=== PATIENT | female | born 1940 | race Caucasian/White ===

== ENCOUNTER 2022-05-08 18:22 | Outpatient (RCR) | payer BC, SELFPAY | END 2022-12-06 09:42 | disposition home or self-care (01) | LOC: MOW 18:22 | PROVIDERS: PCP Family Medicine; Visit Provider Family Medicine | DX: Z76.0 Encounter for issue of repeat prescription (principal) | CPT/HCPCS: S5170 ==

== ENCOUNTER 2022-12-07 10:38 | Outpatient (CLI) | payer MEDICARE, BC, SELFPAY ==
[2022-12-07 11:34] LABS: Chloride* 107 mmol/L (96-114); Potassium* 3.6 mmol/L (3.6-5.1); Sodium* 140 mmol/L (135-149)
[2022-12-07 11:36] LABS: Cholesterol* 147 mg/dL (90-199)
[2022-12-07 11:37] LABS: Alanine Aminotransferase* 24 U/L (4-35); Blood Urea Nitrogen* 16 mg/dL (7-30); Carbon Dioxide* 24 mmol/L (20-32); Creatinine* 0.9 mg/dL (0.5-1.5); Estimated Glomerular Filt Rate 64 ml/min; Glucose* 125 mg/dL (60-115); Triglycerides* 105 mg/dL (40-149)
[2022-12-07 11:38] LABS: HDL Cholesterol* 57 mg/dL (>=50); LDL Cholesterol Calculated 68 mg/dL (<100)
== END 2022-12-07 10:39 | disposition home or self-care (01) ==
LOC: NFLDREF 10:41
PROVIDERS: PCP Family Medicine; Visit Provider Family Medicine
DX: E11.9 Type 2 diabetes mellitus without complications (principal); E78.5 Hyperlipidemia, unspecified; I10 Essential (primary) hypertension
CPT/HCPCS: 80048; 80061; 84460

== ENCOUNTER 2023-05-01 11:53 | Outpatient (CLI) | payer MEDICARE, BC, SELFPAY | END 2023-05-01 11:54 | disposition home or self-care (01) | LOC: AMB 05-02 12:48 | PROVIDERS: PCP Family Medicine; Visit Provider Emergency Medicine | DX: R53.1 Weakness (principal) | CPT/HCPCS: A0425; A0429 ==

== ENCOUNTER 2023-05-01 12:12 | Emergency (ER) | payer MEDICARE, BC, SELFPAY ==
[2023-05-01 12:17] VITALS: BP 144/89; PULSE 90; RESP 18; TEMP 36.4; O2SAT 96; BMI 17.8
--- NOTE | 2023-05-01 12:36 | ED.GENADULT ---
HPI - General Adult General Chief complaint: Back Injury/Pain Stated complaint: Wellness check Time Seen by Provider: 05/01/23 12:26 History of Present Illness HPI narrative: This 82-year-old female is getting her things ready at home in order to move into an assisted living situation about 5 days from now. She comes in for a checkup because of feeling weak. She states that she has chronic back pain. She does not report any other new symptoms. She states that she is doing okay for now at her place of living but it will be good to be in a different place with more assistance. She states that she does not like to eat alone and this place she is going to will have others around and meals prepared for her. She does report some nausea and occasional vomiting. She does not report any injury event her other pain besides her chronic back pain. She arrives with normal vital signs. Related Data Home Medications Medication Instructions Recorded Confirmed metoprolol succinate 25 mg 25 mg PO QDAY 09/06/22 05/01/23 tablet,extended release 24 hr simvastatin 40 mg tablet 40 mg PO QDAY 09/06/22 05/01/23 aspirin 81 mg tablet,delayed 81 mg PO QDAY 09/07/22 05/01/23 release multivitamin (Daily Multi-Vitamin 1 tab PO QDAY 09/07/22 05/01/23 tablet) calcium carbonate 500 mg calcium 500 mg PO BID 02/07/23 05/01/23 (1,250 mg) tablet ergocalciferol (vitamin D2) 10 mcg 20 mcg PO BID 02/07/23 05/01/23 (400 unit) tablet naloxone 0.4 mg/mL injection 0.4 mg IM PRN 02/07/23 02/07/23 solution Previous Rx's Medication Instructions Recorded metformin 500 mg tablet,extended 500 mg PO BID #60 tabs 09/07/22 release 24hr estradiol 0.01% (0.1 mg/gram) 1 g vaginal 2XW #42.5 grams 12/07/22 vaginal cream (Estrace) lisinopril 10 mg tablet 10 mg PO QDAY #90 tabs 12/07/22 nitroglycerin 0.4 mg sublingual 0.4 mg sublingual Q5M PRN chest 12/07/22 tablet pain #20 tabs omeprazole 40 mg capsule,delayed 40 mg PO QDAY #90 caps 12/07/22 release amitriptyline 10 mg tablet 10 mg PO QHS #90 tabs 02/08/23 lancing device #1 ea 02/26/23 morphine 30 mg tablet,extended 30 mg PO BID #60 tabs 04/16/23 release Allergies Allergy/AdvReac Type Severity Reaction Status Date / Time penicillin V Allergy Intermediate Unconscious Verified 02/27/23 14:04 Sulfa (Sulfonamide Allergy Intermediate Rash Verified 02/27/23 14:04 Antibiotics) Review of Systems Status of ROS: Reports: 10 or more systems reviewed and unremarkable except as noted in History and below Narrative: Constitutional: No fevers, no weight gain or loss. Eyes: No discharge. No vision changes. HENT: No congestion, no sore throat, no ear pain. Cardiovascular: No chest pain, no palpitations. Respiratory: No shortness of breath, no wheezes, no cough. Gastrointestinal: No abdominal pain, no vomiting, no diarrhea. Genitourinary: No dysuria, no hematuria. Musculoskeletal: Normal range of motion. Skin: No rashes, no pruritis. Neurological: No dizziness, sensory change, speech change. Generalized weakness and fatigue. Endo/Heme/Allergies: No bruising or bleeding. No polydipsia. Pysch: no suicidality, no anxiety, no insomnia. All other systems reviewed and are negative. [facility] Medical History (Updated 05/01/23 @ 13:54 by Reymundo Ott MD) GERD (gastroesophageal reflux disease) ?K21.9 - Gastro-esophageal reflux disease without esophagitis (ICD-10) Chronic eczema ?L30.9 - Dermatitis, unspecified (ICD-10) History of peptic ulcer (2001) ?Z87.11 - Personal history of peptic ulcer disease (ICD-10) ASCVD (arteriosclerotic cardiovascular disease) ?I25.10 - Atherosclerotic heart disease of [place] coronary artery without angina pectoris (ICD-10) History of myocardial infarction (03/28/10) ?I25.2 - Old myocardial infarction (ICD-10) Atrophic vaginitis ?N95.2 - Postmenopausal atrophic vaginitis (ICD-10) Fibromyalgia ?M79.7 - Fibromyalgia (ICD-10) Generalized anxiety disorder ?F41.1 - Generalized anxiety disorder (ICD-10) Osteopenia ?M85.80 - Other specified disorders of bone density and structure, unspecified site (ICD-10) History of deep venous thrombosis (DVT) of distal vein of right lower extremity ?Z86.718 - Personal history of other venous thrombosis and embolism (ICD-10) Major depression ?F32.9 - Major depressive disorder, single episode, unspecified (ICD-10) Hyperlipidemia ?E78.5 - Hyperlipidemia, unspecified (ICD-10) Hypertension ?I10 - Essential (primary) hypertension (ICD-10) Chronic low back pain ?M54.50 - Low back pain, unspecified (ICD-10) ?G89.29 - Other chronic pain (ICD-10) Type 2 diabetes mellitus ?E11.9 - Type 2 diabetes mellitus without complications (ICD-10) Surgical History (Updated 09/13/22 @ 12:37 by Rosie Elise) History of phacoemulsification of cataract of both eyes with intraocular lens implantation (2002) ?Z98.41 - Cataract extraction status, right eye (ICD-10) ?Z98.42 - Cataract extraction status, left eye (ICD-10) ?Z96.1 - Presence of intraocular lens (ICD-10) Hx of decompressive lumbar laminectomy ?Z98.890 - Other specified postprocedural states (ICD-10) Hx of cholecystectomy ?Z90.49 - Acquired absence of other specified parts of digestive tract (ICD-10) S/P [place]-BSO ?Z90.710 - Acquired absence of both cervix and uterus (ICD-10) ?Z90.722 - Acquired absence of ovaries, bilateral (ICD-10) ?Z90.79 - Acquired absence of other genital organ(s) (ICD-10) Hx of appendectomy ?Z90.49 - Acquired absence of other specified parts of digestive tract (ICD-10) Family History (Updated 09/13/22 @ 13:08 by Rosie Elise) Father Heart disease High blood pressure Mother Liver cancer Migraines Uncle Coronary artery disease Diabetes Paternal Grandmother Diabetes Family/Other Diabetes Social History (Updated 09/10/22 @ 03:21 by Easton Brooks MD) Narrative: , no kids, retired, nonsmoker, no EtOH Smoking Status: Former smoker Do you use any of these nicotine containing products: None Second hand tobacco smoke exposure: No How often do you have a drink containing alcohol: never AUDIT-C Alcohol total score: 0 Non-prescribed substance use: denies use Little interest or pleasure in doing things: not at all Feeling down, depressed, or hopeless: not at all Exam Narrative: Exam Narrative: Constitutional: No acute distress. She weighs 41 kg. HEENT: Normocephalic, atraumatic. Neck: Normal range of motion. Nontender. Supple. Heart: Regular. No murmurs. Normal rate. Intact distal pulses. Lungs: Clear to auscultation. No chest discomfort. No wheezes, rhonchi, or rales. Abdomen: Normal bowel sounds. Nontender. No rebound tenderness. Genitalia: Deferred. Back: No midline tenderness. Normal range of motion. Extremities: Normal range of motion. No injury. No pedal edema. Skin: Intact. No rash. Warm. No erythema or pallor. Neurologic: No altered sensation. No weakness. Alert and oriented. Psychiatric: No suicidality. No anxiety or depression. No insomnia. Nursing notes and vitals signs are reviewed. Const: Vital Signs, click to edit/add: Vital Signs - 24 hr 05/01/23 12:17 Temperature 97.6 F Pulse Rate [Pulse Oximeter] 90 Respiratory Rate 18 Blood Pressure [Ri ght Upper Arm] 144/89 H Pulse Oximetry 96 Oxygen Delivery Me thod Room Air Course Vital Signs Vital signs: Initial Vital Signs Temperature 97.6 F 05/01/23 12:17 Temperature Source Temporal Artery Scan 05/01/23 12:17 Pulse Rate 90 05/01/23 12:17 Respiratory Rate 18 05/01/23 12:17 Blood Pressure 144/89 H 05/01/23 12:17 Blood Pressure Mean 107 H 05/01/23 12:17 Blood Pressure Position High-Fowlers 05/01/23 12:17 Pulse Oximetry 96 05/01/23 12:17 Oxygen Delivery Method Room Air 05/01/23 12:17 Vital Signs Temperature 97.6 F 05/01/23 12:17 Pulse Rate 90 05/01/23 12:17 Respiratory Rate 18 05/01/23 12:17 Blood Pressure 144/89 H 05/01/23 12:17 Pulse Oximetry 96 05/01/23 12:17 Oxygen Delivery Method Room Air 05/01/23 12:17 Temperature 97.6 F 05/01/23 12:17 Pulse Rate 90 05/01/23 12:17 Respiratory Rate 18 05/01/23 12:17 Blood Pressure 144/89 H 05/01/23 12:17 Pulse Oximetry 96 05/01/23 12:17 Oxygen Delivery Method Room Air 05/01/23 12:17 Medical Decision Making MDM Narrative Medical decision making narrative: This patient comes in reporting some generalized weakness. She has chronic low back pain. She is able to get up and ambulate. She is planning to move to a new facility where there is assistance for her living activities. An IV was established today and she received 500 mL of D5 half-normal saline. Lab results returned with reassuring findings. Her glucose is slightly elevated and her white count returns at 14,000. She has normal vital signs. She is okay to return home to continue current plans. Lab Data Labs: Lab Results 05/01/23 Range/Units 12:50 WBC 14.05 H (4.50-11.00) K/uL RBC 4.40 (4.00-5.20) m/uL Hgb 13.1 (12.0-16.0) gm/dL Hct 40.0 (33.0-51.0) % MCV 91 (80-100) fL MCH 30 (26-34) pg MCHC 33 (32-36) gm/dL RDW Coeff of Nikki 13.9 (11.5-15.5) % Plt Count 219 (140-440) K/uL Neut % (Auto) 92.2 H (42.0-72.0) % Lymph % (Auto) 4.0 L (20-44) % Dickey % (Auto) 3.6 (0.0-11.0) % Eos % (Auto) 0.0 (0.0-7.0) % Baso % (Auto) 0.1 (0.0-3.0) % Neut # (Auto) 13.00 H (1.7-7.0) K/uL Lymph # (Auto) 0.60 L (0.90-2.90) K/uL [place]key # (Auto) 0.50 (0.00-0.90) K/UL Eos # (Auto) 0.00 (0.00-0.50) K/uL Baso # (Auto) 0.00 (0.00-0.30) K/uL Sodium 141 (135-149) mmol/L Potassium 3.6 (3.6-5.1) mmol/L Chloride 101 (96-114) mmol/L Carbon Dioxide 29 (20-32) mmol/L BUN 19 (7-30) mg/dL Creatinine 0.7 (0.5-1.5) mg/dL Estimated Creat Clear 28.26 Estimated GFR 86 ml/min Glucose 169 H (60-115) mg/dL Calcium 10.1 (8.4-10.6) mg/dL Discharge Plan Discharge Clinical Impression: Weakness, Chronic back pain Patient Disposition: Home, Self-Care Condition: Stable Additional Instructions: Continue current plans. Follow up with MD or return if worsening symptoms occur. Prescriptions: No Action metoprolol succinate 25 mg tablet extended release 24 hr 25 mg PO QDAY simvastatin 40 mg tablet 40 mg PO QDAY aspirin 81 mg tablet,delayed release (DR/EC) 81 mg PO QDAY multivitamin [Daily Multi-Vitamin] Tablet 1 tab PO QDAY metformin 500 mg tablet extended release 24hr 500 mg PO BID Qty: 60 5RF lisinopril 10 mg tablet 10 mg PO QDAY Qty: 90 3RF omeprazole 40 mg capsule,delayed release(DR/EC) 40 mg PO QDAY Qty: 90 3RF nitroglycerin 0.4 mg tablet, sublingual 0.4 mg sublingual Q5M PRN (Reason: chest pain) Qty: 20 5RF estradiol [Estrace] 0.01 % (0.1 mg/gram) cream 1 g vaginal 2XW Qty: 42.5 5RF calcium carbonate 500 mg calcium (1,250 mg) tablet 500 mg PO BID ergocalciferol (vitamin D2) 10 mcg (400 unit) tablet 20 mcg PO BID naloxone 0.4 mg/mL solution 0.4 mg IM PRN amitriptyline 10 mg tablet 10 mg PO QHS Qty: 90 1RF (DME) lancing device Misc See Rx Instructions .Route Qty: 1 0RF Rx Instructions: As directed morphine 30 mg tablet extended release 30 mg PO BID Qty: 60 0RF Follow Up/Referrals: Easton Brooks MD [Primary Care Provider] - Stand Alone [facility]: [facility] Info Inst[facility]
[2023-05-01] MEDS: 5 % DEXTROSE/0.45% SOD CHLOR 1,000 ML 500 ML IV (12:51)
[2023-05-01 13:01] LABS: Basophils Percent Auto 0.1 % (0.0-3.0); Hemoglobin* 13.1 gm/dL (12.0-16.0); Immature Granulocytes Pct Auto 0.1 %; Mean Corpuscular HGB Conc 33 gm/dL (32-36); Mean Corpuscular Hemoglobin 30 pg (26-34); Mean Corpuscular Volume 91 fL (80-100); Monocytes Percent Auto 3.6 % (0.0-11.0); Neutrophils Percent Auto 92.2 % (42.0-72.0); Platelet Count* 219 K/uL (140-440); RDW Coefficient of Variation % 13.9 % (11.5-15.5); White Blood Count* 14.05 K/uL (4.50-11.00)
[2023-05-01 13:13] LABS: Chloride* 101 mmol/L (96-114); Potassium* 3.6 mmol/L (3.6-5.1); Sodium* 141 mmol/L (135-149)
[2023-05-01 13:16] LABS: Blood Urea Nitrogen* 19 mg/dL (7-30); Calcium* 10.1 mg/dL (8.4-10.6); Carbon Dioxide* 29 mmol/L (20-32); Creatinine* 0.7 mg/dL (0.5-1.5); Est. Creatinine Clearance* 28.26; Estimated Glomerular Filt Rate 86 ml/min; Glucose* 169 mg/dL (60-115)
--- NOTE | 2023-05-01 13:25 | ED.NURSE ---
Pt has stated feelings of anxiety while being here, due to her moving places of living and being here in the hospital. She has also said she has had a lack of sleep since moving, and was nodding off while i assessed her.
[2023-05-01 13:45] LABS: Slide Review Reflex No
[2023-05-01 14:06] VITALS: BP 143/85; PULSE 102; RESP 15; TEMP 36; O2SAT 99
--- NOTE | 2023-05-01 14:16 | ED.NURSE ---
Kenneth thomas called get an update on pt. appears per note that pt will be planned for d/c. Guardian had no further questions.
== END 2023-05-01 15:02 | disposition home or self-care (01) ==
PROVIDERS: Emergency Provider Emergency Medicine Emergency Medical Services; PCP Family Medicine
DX: M54.50 Low back pain, unspecified (principal); R53.1 Weakness
CPT/HCPCS: 36415; 80048; 85025; 99283; 99284; S5010

== ENCOUNTER 2023-05-31 10:29 | Outpatient (CLI) | payer MEDICARE, BC, SELFPAY | END 2023-05-31 10:30 | disposition home or self-care (01) | LOC: NFLDREF 10:31 | PROVIDERS: PCP Family Medicine; Visit Provider Family Medicine | DX: E78.5 Hyperlipidemia, unspecified (principal); I10 Essential (primary) hypertension; E11.9 Type 2 diabetes mellitus without complications | CPT/HCPCS: 80048; 80076 ==

== ENCOUNTER 2023-06-23 20:52 | Outpatient (CLI) | payer MEDICARE, BC, SELFPAY | END 2023-06-23 20:53 | disposition home or self-care (01) | LOC: AMB 06-25 12:53 | PROVIDERS: PCP Family Medicine; Visit Provider Family Medicine | DX: M53.3 Sacrococcygeal disorders, not elsewhere classified (principal) | CPT/HCPCS: A0998 ==

== ENCOUNTER 2023-06-24 13:47 | Outpatient (CLI) | payer MEDICARE, BC, SELFPAY | END 2023-06-24 13:48 | disposition home or self-care (01) | LOC: AMB 06-26 13:43 | PROVIDERS: PCP Family Medicine; Visit Provider Emergency Medicine Emergency Medical Services | DX: S49.91XA Unspecified injury of right shoulder and upper arm, initial encounter (principal); S49.92XA Unspecified injury of left shoulder and upper arm, initial encounter; W18.30XA Fall on same level, unspecified, initial encounter; Y92.129 Unspecified place in nursing home as the place of occurrence of the external cause | CPT/HCPCS: A0425; A0429 ==

== ENCOUNTER 2023-06-24 14:22 | Emergency (ER) | payer MEDICARE, BC, SELFPAY ==
[2023-06-24 14:31] VITALS: BP 166/98; PULSE 85; RESP 18; TEMP 36.2; O2SAT 93; BMI 18.6
--- NOTE | 2023-06-24 14:45 | CRLHL7_ITS ---
For Patients: As a result of the Cures Act, medical imaging exams and procedure reports are released immediately into your electronic medical record. You may view this report before your referring provider. If you have questions, please contact your health care provider. INDICATION: Fall. COMPARISON: None. FINDINGS/IMPRESSION: Left shoulder, three views. No fracture, dislocation, or other acute abnormality is identified in the left shoulder. 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 Dictated by Navid Sosa MD @ 06/24/2023 4:09:35 PM Dictated by: Navid Sosa MD @ 06/24/2023 16:09:56 (Electronically Signed)
--- NOTE | 2023-06-24 14:45 | CRLHL7_ITS ---
For Patients: As a result of the Cures Act, medical imaging exams and procedure reports are released immediately into your electronic medical record. You may view this report before your referring provider. If you have questions, please contact your health care provider. INDICATION: Fall. COMPARISON: None. FINDINGS/IMPRESSION: Right shoulder, three views. No fracture or dislocation is identified in the right shoulder. Mild degenerative changes are seen at the right acromioclavicular joint. Dictated by Navid Sosa MD @ 06/24/2023 4:11:02 PM Dictated by: Navid Sosa MD @ 06/24/2023 16:11:25 (Electronically Signed)
--- NOTE | 2023-06-24 14:47 | ED_ITS ---
HPI - General Adult General Chief complaint: Shoulder Injury/Pain Stated complaint: Fall Time Seen by Provider: 06/24/23 14:30 History of Present Illness HPI narrative: This 83-year-old female resides in the care facility. She has had a couple times where she has slid out of her chair and fallen to the floor. She did not hit her head or have loss of consciousness but does complain of some shoulder pain bilaterally. She tells me however the main reason she came for this visit today is because of swelling in her lower extremities that is occurred over the last 1-2 weeks. She denies having any orthopnea or chest pain. She has not had symptoms like this in the past. She states that she normally sleeps in a recliner because she has GERD. When she lays flat she has increased reflux symptoms but does not report any shortness of breath. Related Data Home Medications Medication Instructions Recorded Confirmed simvastatin 40 mg tablet 40 mg PO QDAY 09/06/22 05/31/23 aspirin 81 mg tablet,delayed 81 mg PO QDAY 09/07/22 05/31/23 release multivitamin (Daily Multi-Vitamin 1 tab PO QDAY 09/07/22 05/31/23 tablet) calcium carbonate 500 mg calcium 500 mg PO BID 02/07/23 05/31/23 (1,250 mg) tablet cholecalciferol (vitamin D3) 10 20 mcg PO BID 05/30/23 05/30/23 mcg (400 unit) tablet (Vitamin D3) naloxone 4 mg/actuation nasal spray intranasal 05/30/23 05/30/23 Previous Rx's Medication Instructions Recorded estradiol 0.01% (0.1 mg/gram) 1 g vaginal 2XW #42.5 grams 12/07/22 vaginal cream (Estrace) lisinopril 10 mg tablet 10 mg PO QDAY #90 tabs 12/07/22 nitroglycerin 0.4 mg sublingual 0.4 mg sublingual Q5M PRN chest 12/07/22 tablet pain #20 tabs omeprazole 40 mg capsule,delayed 40 mg PO QDAY #90 caps 12/07/22 release amitriptyline 10 mg tablet 10 mg PO QHS #90 tabs 02/08/23 metformin 500 mg tablet,extended 500 mg PO BID #180 tabs 05/04/23 release 24hr morphine 30 mg tablet,extended 30 mg PO BID #60 tabs 05/24/23 release furosemide 20 mg tablet (Lasix) 20 mg PO DAILY #14 tabs 06/24/23 Allergies Allergy/AdvReac Type Severity Reaction Status Date / Time penicillin V Allergy Intermediate Unconscious Verified 05/31/23 09:48 Sulfa (Sulfonamide Allergy Intermediate Rash Verified 05/31/23 09:48 Antibiotics) Review of Systems Status of ROS: Reports: 10 or more systems reviewed and unremarkable except as noted in History and below Narrative: Constitutional: No fevers, no weight gain or loss. Eyes: No discharge. No vision changes. HENT: No congestion, no sore throat, no ear pain. Cardiovascular: No chest pain, no palpitations. Respiratory: No shortness of breath, no wheezes, no cough. Gastrointestinal: No abdominal pain, no vomiting, no diarrhea. Genitourinary: No dysuria, no hematuria. Musculoskeletal: Normal range of motion. Bilateral shoulder pain. Bilateral lower extremity edema. Skin: No rashes, no pruritis. Neurological: No dizziness, weakness, sensory change, speech change. Endo/Heme/Allergies: No bruising or bleeding. No polydipsia. Pysch: no suicidality, no anxiety, no insomnia. All other systems reviewed and are negative. [facility] Medical History (Updated 06/24/23 @ 15:31 by Reymundo Ott MD) Mixed hyperlipidemia ?E78.2 - Mixed hyperlipidemia (ICD-10) Primary hypertension ?I10 - Essential (primary) hypertension (ICD-10) GERD (gastroesophageal reflux disease) ?K21.9 - Gastro-esophageal reflux disease without esophagitis (ICD-10) Chronic eczema ?L30.9 - Dermatitis, unspecified (ICD-10) History of peptic ulcer (2001) ?Z87.11 - Personal history of peptic ulcer disease (ICD-10) ASCVD (arteriosclerotic cardiovascular disease) ?I25.10 - Atherosclerotic heart disease of [place] coronary artery without angina pectoris (ICD-10) History of myocardial infarction (03/28/10) ?I25.2 - Old myocardial infarction (ICD-10) Atrophic vaginitis ?N95.2 - Postmenopausal atrophic vaginitis (ICD-10) Fibromyalgia ?M79.7 - Fibromyalgia (ICD-10) Generalized anxiety disorder ?F41.1 - Generalized anxiety disorder (ICD-10) Osteopenia ?M85.80 - Other specified disorders of bone density and structure, unspecified site (ICD-10) History of deep venous thrombosis (DVT) of distal vein of right lower extremity ?Z86.718 - Personal history of other venous thrombosis and embolism (ICD-10) Major depression ?F32.9 - Major depressive disorder, single episode, unspecified (ICD-10) Chronic low back pain ?M54.50 - Low back pain, unspecified (ICD-10) ?G89.29 - Other chronic pain (ICD-10) Type 2 diabetes mellitus ?E11.9 - Type 2 diabetes mellitus without complications (ICD-10) Surgical History (Updated 09/13/22 @ 12:37 by Rosie Elise) History of phacoemulsification of cataract of both eyes with intraocular lens implantation (2002) ?Z98.41 - Cataract extraction status, right eye (ICD-10) ?Z98.42 - Cataract extraction status, left eye (ICD-10) ?Z96.1 - Presence of intraocular lens (ICD-10) Hx of decompressive lumbar laminectomy ?Z98.890 - Other specified postprocedural states (ICD-10) Hx of cholecystectomy ?Z90.49 - Acquired absence of other specified parts of digestive tract (ICD- 10) S/P [place]-BSO ?Z90.710 - Acquired absence of both cervix and uterus (ICD-10) ?Z90.722 - Acquired absence of ovaries, bilateral (ICD-10) ?Z90.79 - Acquired absence of other genital organ(s) (ICD-10) Hx of appendectomy ?Z90.49 - Acquired absence of other specified parts of digestive tract (ICD- 10) Family History (Updated 09/13/22 @ 13:08 by Rosie Elise) Father Heart disease High blood pressure Mother Liver cancer Migraines Uncle Coronary artery disease Diabetes Paternal Grandmother Diabetes Family/Other Diabetes Social History (Updated 06/17/23 @ 03:27 by Easton Brooks MD) Narrative: , no kids, retired, nonsmoker, no EtOH, lives in an assisted living in [place] Smoking Status: Former smoker Do you use any of these nicotine containing products: None Second hand tobacco smoke exposure: No How often do you have a drink containing alcohol: never AUDIT-C Alcohol total score: 0 Non-prescribed substance use: denies use Little interest or pleasure in doing things: not at all Feeling down, depressed, or hopeless: not at all Exam Narrative: Exam Narrative: Constitutional: Well-developed, well-nourished, no acute distress. HEENT: Normocephalic, atraumatic. Neck: Normal range of motion. Nontender. Supple. Heart: Regular. No murmurs. Normal rate. Intact distal pulses. Lungs: Clear to auscultation. No chest discomfort. No wheezes, rhonchi, or rales. Abdomen: Normal bowel sounds. Nontender. No rebound tenderness. Genitalia: Deferred. Back: No midline tenderness. Normal range of motion. Extremities: Left shoulder has a very superficial abrasion with some old bruising. The right shoulder shows no sign of deformity or injury. She reports pain bilaterally in her shoulders. Her greater concern is the bilateral lower extremity edema. She has large pitting edema in both legs that extends from her knees down to above her ankles. Her feet are not edematous. Skin: Intact. No rash. Warm. No erythema or pallor. Neurologic: No altered sensation. No weakness. Alert and oriented. Psychiatric: No suicidality. No anxiety or depression. No insomnia. Nursing notes and vitals signs are reviewed. Const: Vital Signs, click to edit/add: Vital Signs - 24 hr 06/24/23 14:31 Temperature 97.2 F L Pulse Rate [Right Pulse Oximeter] 85 Respiratory Rate 18 Blood Pressure [Ri ght Upper Arm] 166/98 H Pulse Oximetry 93 Oxygen Delivery Me thod Room Air Course Vital Signs Vital signs: Initial Vital Signs Temperature 97.2 F L 06/24/23 14:31 Temperature Source Temporal Artery Scan 06/24/23 14:31 Pulse Rate 85 06/24/23 14:31 Respiratory Rate 18 06/24/23 14:31 Blood Pressure 166/98 H 06/24/23 14:31 Blood Pressure Mean 120 H 06/24/23 14:31 Blood Pressure Position Sitting 06/24/23 14:31 Pulse Oximetry 93 06/24/23 14:31 Oxygen Delivery Method Room Air 06/24/23 14:31 Vital Signs Temperature 97.2 F L 06/24/23 14:31 Pulse Rate 85 06/24/23 14:31 Respiratory Rate 18 06/24/23 14:31 Blood Pressure 166/98 H 06/24/23 14:31 Pulse Oximetry 93 06/24/23 14:31 Oxygen Delivery Method Room Air 06/24/23 14:31 Temperature 97.2 F L 06/24/23 14:31 Pulse Rate 85 06/24/23 14:31 Respiratory Rate 18 06/24/23 14:31 Blood Pressure 166/98 H 06/24/23 14:31 Pulse Oximetry 93 06/24/23 14:31 Oxygen Delivery Method Room Air 06/24/23 14:31 Medical Decision Making MDM Narrative Medical decision making narrative: This patient comes in reporting some shoulder discomfort after a few soft falls recently. Her bigger concern is retention of fluid in her lower extremities. She thinks that this is what is causing some increased risk for falling. She does not have any chest pain and does not have any orthopnea. She states that she has not had fluid retention like this in the past.X-ray images of the shoulders by my assessment with radiology report pending show no evidence of fracture or dislocation. As for the pedal edema the patient received prescription for Lasix. I did describe lab and imaging options in this regard also which may be important at some point if there is need for ongoing management. I advised her to follow-up with her primary physician regarding this. Discharge Plan Discharge Clinical Impression: Pedal edema, Bilateral shoulder pain Patient Disposition: Home, Self-Care Condition: Stable Additional Instructions: Take medication as prescribed. Follow up with primary physician in 1-2 weeks to review plans. Return if not improving or worsening symptoms happen. Prescriptions: New furosemide [Lasix] 20 mg tablet 20 mg PO DAILY Qty: 14 2RF No Action simvastatin 40 mg tablet 40 mg PO QDAY aspirin 81 mg tablet,delayed release (DR/EC) 81 mg PO QDAY multivitamin [Daily Multi-Vitamin] Tablet 1 tab PO QDAY lisinopril 10 mg tablet 10 mg PO QDAY Qty: 90 3RF omeprazole 40 mg capsule,delayed release(DR/EC) 40 mg PO QDAY Qty: 90 3RF nitroglycerin 0.4 mg tablet, sublingual 0.4 mg sublingual Q5M PRN (Reason: chest pain) Qty: 20 5RF estradiol [Estrace] 0.01 % (0.1 mg/gram) cream 1 g vaginal 2XW Qty: 42.5 5RF naloxone 4 mg/actuation spray,non-aerosol intranasal Patient Comments: [NO ORIGINAL SIG] cholecalciferol (vitamin D3) [Vitamin D3] 10 mcg (400 unit) tablet 20 mcg PO BID calcium carbonate 500 mg calcium (1,250 mg) tablet 500 mg PO BID amitriptyline 10 mg tablet 10 mg PO QHS Qty: 90 1RF metformin 500 mg tablet extended release 24hr 500 mg PO BID Qty: 180 3RF morphine 30 mg tablet extended release 30 mg PO BID Qty: 60 0RF Follow Up/Referrals: Easton Brooks MD [Primary Care Provider] - Stand Alone Forms: [facility] Info Instructions
== END 2023-06-24 15:56 | disposition home or self-care (01) ==
PROVIDERS: Emergency Provider Emergency Medicine Emergency Medical Services; PCP Family Medicine
DX: R60.9 Edema, unspecified (principal); M25.512 Pain in left shoulder; M25.511 Pain in right shoulder
CPT/HCPCS: 73030; 99284